=== PATIENT | male | born 1945 | race Caucasian/White ===

== ENCOUNTER 2018-07-23 10:03 | Emergency (ER) | payer OTHER ==
[~2018-07-23] VITALS: Ht 180.3 cm; Wt 77.1 kg
[~2018-07-23 10:03] MED LIST: SYNTHROID150 MCG PO
== END 2018-07-23 15:42 | disposition home or self-care (01) ==
LOC: ER 10:03
DX: N13.2 Hydronephrosis with renal and ureteral calculous obstruction (principal); N39.0 Urinary tract infection, site not specified; R10.814 Left lower quadrant abdominal tenderness

== ENCOUNTER 2019-05-24 12:52 | Emergency (ER) | payer OTHER ==
[~2019-05-24] VITALS: Ht 185.4 cm; Wt 79.8 kg
== END 2019-05-24 22:28 | disposition home or self-care (01) ==
LOC: ER 12:52
DX: R10.31 Right lower quadrant pain (principal); I72.3 Aneurysm of iliac artery